=== PATIENT | female | born 1970 | race Caucasian/White ===

== ENCOUNTER → 2018-11-29 10:57 | Outpatient (CLI) | payer OTHER, SELFPAY ==
--- NOTE | 2018-11-29 11:05 | MRI_ITS ---
STUDY: BILATERAL BREAST MR WITHOUT AND WITH CONTRAST REASON FOR EXAM: Female, 48 years old. Family history of breast cancer with right breast pain for 6 months. TECHNIQUE: Multi-sequence multi-echo imaging of both breasts was performed with a dedicated breast coil. T1-weighted and T2-weighted images were performed before the administration of contrast. T1-weighted images were also performed after the administration of 5 mL of Gadavist contrast intravenously without complications. COMPARISON: Screening mammogram dated August 09, 2018 and compression spot images of both breasts dated August 09, 2018 FINDINGS: RIGHT BREAST: The breast tissue is heterogeneously dense with no background enhancement. There are no abnormal enhancing masses or areas of non-mass enhancement in the right breast. LEFT BREAST: The breast tissue is heterogeneously dense with no background enhancement. There are no abnormal enhancing masses or areas of non-mass enhancement in the left breast. There are no enlarged or abnormal lymph nodes. There is no abnormality in the visualized regions of the chest or liver. MRI/Breast w/o and/or W Cont Bilat IMPRESSION: No significant abnormality on the breast MRI with contrast. CATEGORY: BIRADS Category 1: Negative. A letter regarding these results will be sent to the patient by the facility within 30 days. Electronically Signed: Amado Chaney MD at 11:20 EST , Service support ,
== END ==
PROVIDERS: Family Provider Family Medicine; PCP Family Medicine; Referring Provider Family Medicine; Visit Provider Family Medicine
DX: N64.4 Mastodynia (principal); Z80.3 Family history of malignant neoplasm of breast
CPT/HCPCS: 77059; A9585; A4216; C8908